=== PATIENT | male | born 1975 ===

== ENCOUNTER 2025-06-01 18:12 | Emergency (ER) | payer MEDICAID ==
--- NOTE | 2025-06-01 18:58 | Physician Documentation ---
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 Physical Exam Physical Exam Physical Exam General: Alert, no apparent distress. HEENT: PERRL, EOMI, no injection, moist mucous membranes. Neck: Full range of motion. Respiratory: Lungs clear, no respiratory distress. Chest: No accessory muscle use. Cardiovascular: Regular rate and rhythm, no murmurs. Gastrointestinal: Soft, nontender, nondistended. Bowels sounds present. Extremities: Normal range of motion, no deformity. Neurologic: Oriented x4. Psychiatric: Normal mood and affect. Skin: Normal color, warm and dry. No edema, no ecchymosis. Medical Decision Making Additional information obtaine: old records Findings eloped Differential Diagnosis ws Departure Disposition: LEFT AWOL/ELOPED Impression: Primary Impression: Pain Referrals: NO PRIMARY CARE PROVIDER (PCP) Signature Scribe Signature: g Attestation: Scribed for Vish Muniz [employer] by Vish Donovan NP . 06/01/25 23:13 VISH MUNIZ NP Jun 01, 2025 18:58
== END 2025-06-01 20:43 | disposition left against medical advice (07) ==
LOC: ER 18:14
DX: M25.511 Pain in right shoulder (principal)
CPT/HCPCS: 99282